=== PATIENT | male | born 1980 | race Two or more races ===

== ENCOUNTER 2017-06-09 14:52 | Emergency (ER) | payer MEDICAID ==
[~2017-06-09] VITALS: Ht 180.3 cm; Wt 90.7 kg
[2017-06-09 16:37] VITALS: BP 131/73
[2017-06-09] MEDS ORDERED: TETANUS-DIPTH-ACEL PERTUSSIS 0.5ML SYRG IM ONE (19:15)
== END 2017-06-09 19:14 | disposition home or self-care (01) ==
LOC: ER 14:52 → EDBD 14:52 → ER 19:14
DX: F10.129 Alcohol abuse with intoxication, unspecified (principal); F17.210 Nicotine dependence, cigarettes, uncomplicated; R51 Headache
CPT/HCPCS: 36415; 70450; 72125; 80307; 80320